=== PATIENT | male | born 1960 ===

== ENCOUNTER 2017-08-30 06:28 | Observation (INO) | payer OTHER ==
[2017-08-29 14:35] VITALS: BP 118/81
[2017-08-29 15:02] LABS: HEMATOCRIT 45.1 % (39.2-51.8); HEMOGLOBIN 15.2 g/dL (13.7-18.0); WHITE BLOOD COUNT 8.3 x10^3/uL (3.4-10)
[2017-08-29 15:14] LABS: ASPARTATE AMINO TRANSFERASE 25 U/L (15-37); BLOOD UREA NITROGEN 16 mg/dL (7-18)
[~2017-08-30] VITALS: Ht 172.7 cm; Wt 123.9 kg
[~2017-08-30 06:28] MED LIST: ATOR20TA9 PO; DILT240C77 PO; LISI-170 PO; METF500T4 PO; METO50TA82 PO; OMEP-110 PO; RIVA20TA PO
[2017-08-30] MEDS ORDERED: SODIUM CHLORIDE 0.9% 1,000 ML IV SCH ×2 (06:47→07:00)
[2017-08-30] MEDS ORDERED: HEPARIN 1,000 UNITS/ML, 10ML ONE ×2 (07:45→08:17)
[2017-08-30] MEDS ORDERED: ISOPROTERENOL 0.2MG/ML, 5ML ONE (07:45)
[2017-08-30] MEDS ORDERED: PROTAMINE SULFATE 10 MG/ML, 5ML ONE ×2 (07:45→08:17)
[2017-08-30] MEDS ORDERED: MIDAZOLAM 1 MG/ML, 5ML ONE (07:48)
[2017-08-30] MEDS ORDERED: FENTANYL PF 100 MCG/2ML ONE ×2 (07:48)
[2017-08-30] MEDS ORDERED: DEXAMETHASONE 4 MG/ML, 1ML ONE (07:59)
[2017-08-30] MEDS ORDERED: VASOPRESSIN 20 UNIT/ML, 1ML ONE (07:59)
[2017-08-30] MEDS ORDERED: SUCCINYLCHOLINE 20 MG/ML, 10ML ONE (07:59)
[2017-08-30] MEDS ORDERED: GLYCOPYRROLATE 0.2MG/1ML, 5ML ONE (07:59)
[2017-08-30] MEDS ORDERED: ROCURONIUM 10 MG/ML ONE (07:59)
[2017-08-30] MEDS ORDERED: ALBUTEROL SULFATE 200 PUFFS/8.5 GR INH ONE (07:59)
[2017-08-30] MEDS ORDERED: ONDANSETRON 2MG/ML, 2ML ONE (07:59)
[2017-08-30] MEDS ORDERED: PHENYLEPHRINE 10 MG/ML ONE (07:59)
[2017-08-30] MEDS ORDERED: NEOSTIGMINE 1 MG/ML, 10ML ONE (07:59)
[2017-08-30] MEDS ORDERED: PROPOFOL 10 MG/ML, 20ML ONE (07:59)
[2017-08-30] MEDS ORDERED: LIDOCAINE 2%, 20ML ONE (08:19)
[2017-08-30] MEDS ORDERED: ACETAMINOPHEN 325 MG TABLET PO PRN ×2 (09:30→11:00)
[2017-08-30] MEDS ORDERED: DILTIAZEM 240 MG CAP.ER.24H PO SCH (09:31)
[2017-08-30] MEDS ORDERED: ALBUTEROL SULFATE 2.5 MG/3 ML NPPB PRN (11:00)
[2017-08-30] MEDS ORDERED: MIDAZOLAM 1 MG/ML, 2ML IV PRN (11:00)
[2017-08-30] MEDS ORDERED: MEPERIDINE/PF 25MG/0.5ML IVPush PRN (11:00)
[2017-08-30] MEDS ORDERED: FENTANYL PF 100 MCG/2ML IV PRN (11:00)
[2017-08-30] MEDS ORDERED: OXYcodone 5 MG/5 ML ORAL.SOL UDC PO PRN (11:00)
[2017-08-30] MEDS ORDERED: ONDANSETRON 2MG/ML, 2ML IVPush PRN (11:00)
[2017-08-30] MEDS ORDERED: PROMETHAZINE 25 MG/ML, 1ML IV PRN (11:00)
[2017-08-30] MEDS ORDERED: hydrALAzine 20 MG/ML, 1ML IV PRN (11:00)
[2017-08-30] MEDS ORDERED: LABETALOL 5MG/ML, 20ML IV PRN (11:00)
[2017-08-30] MEDS ORDERED: HYDROmorphone 1 MG/ML, 1ML IV PRN (11:00)
[2017-08-30] MEDS: metFORMIN 500 MG TABLET PO SCH ×2 (12:43→18:28)
[2017-08-30 15:45] VITALS: BP 100/57
[2017-08-30] MEDS ORDERED: RIVAROXABAN 20 MG TABLET PO SCH (17:00)
[2017-08-30 19:35] VITALS: BP 118/65
[2017-08-30] MEDS: METOPROLOL TARTRATE 50 MG TABLET PO SCH (20:19)
[2017-08-30] MEDS ORDERED: ATORVASTATIN 20 MG TABLET PO SCH (21:00)
[2017-08-31 01:20] VITALS: BP 118/69
[2017-08-31] MEDS ORDERED: OMEPRAZOLE 20 MG CAPSULE.DR PO SCH (07:30)
[2017-08-31] MEDS ORDERED: FUROSEMIDE 40 MG/4 ML IV SCH (08:00)
[2017-08-31] MEDS ORDERED: LISINOPRIL 20 MG TABLET PO SCH (09:00)
[2017-08-31] MEDS ORDERED: FLUTICASONE NASAL SPRAY 16GM NAS SCH (09:00)
[2017-08-31] MEDS ORDERED: DILTIAZEM 240 MG CAP.ER.24H PO SCH (09:00)
[2017-08-31 09:10] VITALS: BP 147/81
[2017-08-31] MEDS: METOPROLOL TARTRATE 50 MG TABLET PO SCH (09:19)
[2017-08-31] MEDS: metFORMIN 500 MG TABLET PO SCH (09:19)
[2017-08-31 13:04] VITALS: BP 112/66
[2017-08-31] MEDS ORDERED: ATORVASTATIN 20 MG TABLET PO SCH (21:00)
== END 2017-08-31 14:56 | disposition home or self-care (01) ==
LOC: CACL 06:28 → EDSTATUS 08:00 → 5SO 12:16 → CACL 21:44
PROVIDERS: ADMIT Internal Medicine Cardiovascular Disease; ATTEND Internal Medicine Cardiovascular Disease
DX: I48.92 Unspecified atrial flutter (principal); R09.02 Hypoxemia; G47.30 Sleep apnea, unspecified; R06.89 Other abnormalities of breathing; I10 Essential (primary) hypertension; E11.9 Type 2 diabetes mellitus without complications; K21.9 Gastro-esophageal reflux disease without esophagitis; E66.9 Obesity, unspecified; E78.5 Hyperlipidemia, unspecified; Z82.5 Family history of asthma and other chronic lower respiratory diseases; Z68.38 Body mass index [BMI] 38.0-38.9, adult
CPT/HCPCS: 36415; 71010; 80053; 82600; 85025; 85610; 85730; 93306; 93312; 93321; 93325; 93613; 93621; 93653; 94660; 96374; C1730; C1731; C1732; C1894; G0378; J0330; J1100; J1940; J2250; J2370; J2405; J2704; J2710; J3010; J3490; J1644; J2720